=== PATIENT | male | born 1955 | race Hispanic/Latino ===

== ENCOUNTER 2017-07-04 16:50 | Emergency (ER) | payer BC, OTHER ==
[2017-07-04 17:09] VITALS: BP 148/96; PULSE 78; RESP 16; TEMP 98.2; O2SAT 99
[2017-07-04] MEDS ORDERED: Oxycodone/Acetaminophen 5/325 mg Tab PO STA (18:14)
[2017-07-04] MEDS ORDERED: Oxycodone/Acetaminophen 5/325 mg Tab ONE (18:22)
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
== END 2017-07-04 19:05 | disposition home or self-care (01) ==
LOC: H.ER 16:50
DX: M54.9 Dorsalgia, unspecified (principal); M51.37 Other intervertebral disc degeneration, lumbosacral region